=== PATIENT | female | born 1955 | race Caucasian/White ===

== ENCOUNTER 2016-09-28 16:18 | Inpatient (IN) | payer SELFPAY ==
[~2016-09-28] VITALS: Ht 195.6 cm; Wt 58.8 kg
[2016-09-28] MEDS ORDERED: SODIUM CHLORIDE 0.9% 1,000 ML IVB ONE (17:36)
[2016-09-28 18:29] LABS: Partial Thromboplastin Time 32.6 sec (22.64-33.71)
[2016-09-28 18:31] LABS: Calcium 7.3 mg/dL (8.5-10.1); Magnesium 2.1 mg/dL (1.6-2.6); Potassium 3.4 mmol/L (3.5-5.1)
[2016-09-28] MEDS ORDERED: ETOMIDATE (2MG/ML) 20ML VIAL IV ONE ×2 (18:34→18:45)
[2016-09-28] MEDS ORDERED: SUCCINYLCHOLINE CHLORIDE 20 MG/ML 10ML VIAL IV ONE ×2 (18:34→18:45)
[2016-09-28 18:39] LABS: INR 1.55 (0.9-1.15)
[2016-09-28 18:42] LABS: Basophils # (auto) 0 uL; Basophils % (auto) 0.5 % (0.0-2.0); Eosinophils # (auto) 0 uL; Eosinophils % (auto) 0.5 % (0.0-7.0); Hematocrit 44.5 % (36.0-46.0); Hemoglobin 14.4 g/dL (12.2-16.2); Lymphocytes # (auto) 0.6 uL; Mean Corpuscular Hemoglobin 28.6 pg (28.0-32.0); Mean Corpuscular Hgb Conc. 32.4 g/dL (32.0-36.0); Mean Corpuscular Volume 88.2 fL (80.0-100.0); Mean Platelet Volume 8.9 fL (7.4-10.4); Monocytes # (auto) 0.4 uL; Monocytes % (auto) 5.7 % (0.0-12.0); Neutrophils # (auto) 5.4 uL; Neutrophils % (auto) 84.3 % (37.0-80.0); Platelet Count (auto) 160 10^3/uL (140-450); Red Cell Distribution Width 14.4 % (11.6-16.0); White Blood Cell 6.4 10^3/uL (4.4-10.8)
[2016-09-28 18:45] VITALS: BP 109/67
[2016-09-28 18:47] LABS: Bilirubin, Total 2.4 mg/dL (0.2-1.0); Total Protein 5.8 g/dL (6.4-8.2)
[2016-09-28] MEDS ORDERED: MIDAZOLAM DRIP 100 mg/100mL NS 100 ML IV SCH (19:00)
[2016-09-28 19:29] LABS: Acetaminophen 10.4 ug/mL (10-30)
[2016-09-28 19:30] LABS: Urine Color Yellow (Yellow); Urine Glucose Normal (Normal); Urine Ketone Negative (Negative); Urine Mucus FEW (None Seen); Urine Nitrite Negative (Negative); Urine RBC 1 /hpf (0 - 4); Urine Squamous Epithelial Cell FEW /hpf (<5); Urine pH 5.5 (5.0-8.0)
[2016-09-28 19:35] LABS: Urine Bilirubin Negative (Negative); Urine Blood 2+ /uL (Negative)
[2016-09-28 19:58] LABS: Salicylate < 0.2 mg/dL (2.8-20.0)
[2016-09-28 20:05] VITALS: BP 127/78
[2016-09-28] MEDS ORDERED: SODIUM CHLORIDE 0.9% 1,000 ML IV ONE (21:45)
[2016-09-28] MEDS ORDERED: PANTOPRAZOLE SODIUM 40 MG/10 ML VIAL IV ONE (21:45)
[2016-09-28] MEDS ORDERED: NITROGLYCERIN 0.4 MG SL TAB SL PRN (22:00)
[2016-09-28] MEDS ORDERED: LACTULOSE 20Gm/30ML SOLN PO PRN (22:00)
[2016-09-28] MEDS ORDERED: MORPHINE SULF INJ 2 MG/ML SYRINGE 1ML IV PRN (22:00)
[2016-09-28 22:10] VITALS: BP 103/68
[2016-09-28] MEDS ORDERED: SODIUM BICARBONATE 8.4 % INJ 50ML VIAL IV ONE (22:30)
[2016-09-28] MEDS ORDERED: NALOXONE HCL 1MG/ML 2ML SYRINGE IV ONE (22:30)
[2016-09-28] MEDS ORDERED: ENOXAPARIN SOD 40 MG/0.4 ML SYRINGE SC ONE (22:45)
[2016-09-28] MEDS: PIPERACILLIN-TAZOB 3.375GM 100 ML IV SCH (22:58)
[2016-09-29] VITALS (9 sets, daily range): BP systolic 105–128; BP diastolic 52–78
[2016-09-29] MEDS: ACETAMINOPHEN 650 MG RECT SUPP PR PRN ×2 (02:15→14:21)
[2016-09-29 03:55] LABS: Basophils # (auto) 0 uL; Basophils % (auto) 0.1 % (0.0-2.0); Eosinophils # (auto) 0 uL; Eosinophils % (auto) 0.2 % (0.0-7.0); Hematocrit 46.6 % (36.0-46.0); Hemoglobin 15.1 g/dL (12.2-16.2); Lymphocytes # (auto) 0.5 uL; Lymphocytes % (auto) 8.9 % (10.0-50.0); Mean Corpuscular Hemoglobin 28.6 pg (28.0-32.0); Mean Corpuscular Hgb Conc. 32.4 g/dL (32.0-36.0); Mean Corpuscular Volume 88.3 fL (80.0-100.0); Mean Platelet Volume 8.6 fL (7.4-10.4); Monocytes # (auto) 0.3 uL; Monocytes % (auto) 5.6 % (0.0-12.0); Neutrophils # (auto) 4.4 uL; Neutrophils % (auto) 85.2 % (37.0-80.0); Platelet Count (auto) 169 10^3/uL (140-450); Red Cell Distribution Width 14.6 % (11.6-16.0); White Blood Cell 5.2 10^3/uL (4.4-10.8)
[2016-09-29 04:11] LABS: Albumin 2.6 g/dL (3.4-5.0); BUN/Creatinine Ratio 18.5; Calcium 7.2 mg/dL (8.5-10.1); Magnesium 1.8 mg/dL (1.6-2.6); Potassium 4.1 mmol/L (3.5-5.1)
[2016-09-29 04:25] LABS: Bilirubin, Total 2.7 mg/dL (0.2-1.0)
[2016-09-29] MEDS: PIPERACILLIN-TAZOB 3.375GM 100 ML IV SCH ×4 (04:43→23:18)
[2016-09-29] MEDS ORDERED: SODIUM CHLORIDE 0.9% 1,000 ML IV ONE (06:30)
[2016-09-29] MEDS: ENOXAPARIN SOD 40 MG/0.4 ML SYRINGE SC SCH (10:26)
[2016-09-29] MEDS: PANTOPRAZOLE SODIUM 40 MG/10 ML VIAL IV SCH (10:26)
[2016-09-29] MEDS: D5W/SOD CHL 0.45%/KCL 20MEQ 1,000 ML IV SCH (17:30)
[2016-09-29] MEDS ORDERED: PROPOFOL 100 ML IV ONE ×2 (19:47→19:49)
[2016-09-29] MEDS: PROPOFOL 100 ML IV SCH (19:58)
[2016-09-29] MEDS: NOREPINEPHRINE BITARTRATE 250 ML IV SCH (20:00)
[2016-09-30] VITALS (12 sets, daily range): BP systolic 101–148; BP diastolic 57–91
[2016-09-30] MEDS ORDERED: MIDAZOLAM DRIP 100 mg/100mL NS 100 ML IV ONE (01:15)
[2016-09-30] MEDS: MIDAZOLAM DRIP 100 mg/100mL NS 100 ML IV SCH (01:40)
[2016-09-30] MEDS: D5W/SOD CHL 0.45%/KCL 20MEQ 1,000 ML IV SCH ×3 (02:00→18:19)
[2016-09-30] MEDS: PIPERACILLIN-TAZOB 3.375GM 100 ML IV SCH ×4 (05:02→23:16)
[2016-09-30 06:33] LABS: Basophils # (auto) 0 uL; Basophils % (auto) 0.1 % (0.0-2.0); Eosinophils # (auto) 0 uL; Eosinophils % (auto) 0.2 % (0.0-7.0); Hematocrit 40.4 % (36.0-46.0); Hemoglobin 12.9 g/dL (12.2-16.2); Lymphocytes # (auto) 0.9 uL; Lymphocytes % (auto) 7.1 % (10.0-50.0); Mean Corpuscular Hemoglobin 28.4 pg (28.0-32.0); Mean Corpuscular Hgb Conc. 31.9 g/dL (32.0-36.0); Mean Corpuscular Volume 88.8 fL (80.0-100.0); Mean Platelet Volume 9.3 fL (7.4-10.4); Monocytes # (auto) 0.5 uL; Monocytes % (auto) 4.4 % (0.0-12.0); Neutrophils # (auto) 10.7 uL; Neutrophils % (auto) 88.2 % (37.0-80.0); Platelet Count (auto) 160 10^3/uL (140-450); Red Cell Distribution Width 14.2 % (11.6-16.0); White Blood Cell 12.1 10^3/uL (4.4-10.8)
[2016-09-30 06:58] LABS: Albumin 2.3 g/dL (3.4-5.0); BUN/Creatinine Ratio 16.1; Calcium 7.3 mg/dL (8.5-10.1); Potassium 3.7 mmol/L (3.5-5.1)
[2016-09-30 07:05] LABS: Bilirubin, Total 1.5 mg/dL (0.2-1.0); Total Protein 4.9 g/dL (6.4-8.2)
[2016-09-30] MEDS: ENOXAPARIN SOD 40 MG/0.4 ML SYRINGE SC SCH (09:35)
[2016-09-30] MEDS: PANTOPRAZOLE SODIUM 40 MG/10 ML VIAL IV SCH (09:35)
[2016-09-30] MEDS: ACETAMINOPHEN 650 MG RECT SUPP PR PRN (22:55)
[2016-10-01] VITALS (12 sets, daily range): BP systolic 109–142; BP diastolic 62–82
[2016-10-01] MEDS: MIDAZOLAM DRIP 100 mg/100mL NS 100 ML IV SCH (01:38)
[2016-10-01] MEDS: D5W/SOD CHL 0.45%/KCL 20MEQ 1,000 ML IV SCH ×3 (02:29→17:27)
[2016-10-01] MEDS: PIPERACILLIN-TAZOB 3.375GM 100 ML IV SCH ×4 (05:25→22:30)
[2016-10-01 06:33] LABS: Basophils # (auto) 0 uL; Basophils % (auto) 0.2 % (0.0-2.0); Eosinophils # (auto) 0.1 uL; Eosinophils % (auto) 0.9 % (0.0-7.0); Hematocrit 38.5 % (36.0-46.0); Hemoglobin 12.3 g/dL (12.2-16.2); Lymphocytes % (auto) 11.3 % (10.0-50.0); Mean Corpuscular Hemoglobin 28.8 pg (28.0-32.0); Mean Corpuscular Hgb Conc. 31.9 g/dL (32.0-36.0); Mean Corpuscular Volume 90.1 fL (80.0-100.0); Mean Platelet Volume 9.3 fL (7.4-10.4); Monocytes # (auto) 0.5 uL; Monocytes % (auto) 5.6 % (0.0-12.0); Neutrophils # (auto) 7.1 uL; Platelet Count (auto) 133 10^3/uL (140-450); Red Cell Distribution Width 15.1 % (11.6-16.0); White Blood Cell 8.6 10^3/uL (4.4-10.8)
[2016-10-01 06:49] LABS: Albumin 2.2 g/dL (3.4-5.0); BUN/Creatinine Ratio 12.8; Bilirubin, Total 1.4 mg/dL (0.2-1.0); Calcium 7.7 mg/dL (8.5-10.1); Potassium 3.7 mmol/L (3.5-5.1)
[2016-10-01] MEDS: NOREPINEPHRINE BITARTRATE 250 ML IV SCH ×2 (08:35→20:00)
[2016-10-01] MEDS: ENOXAPARIN SOD 40 MG/0.4 ML SYRINGE SC SCH (10:11)
[2016-10-01] MEDS: PANTOPRAZOLE SODIUM 40 MG/10 ML VIAL IV SCH (10:11)
[2016-10-01] MEDS: PROPOFOL 100 ML IV SCH ×3 (10:52→23:30)
[2016-10-02] VITALS (78 sets, daily range): BP systolic 102–160; BP diastolic 60–91
[2016-10-02] MEDS: MIDAZOLAM DRIP 100 mg/100mL NS 100 ML IV SCH (01:38)
[2016-10-02] MEDS: D5W/SOD CHL 0.45%/KCL 20MEQ 1,000 ML IV SCH ×3 (03:50→21:33)
[2016-10-02] MEDS: PIPERACILLIN-TAZOB 3.375GM 100 ML IV SCH ×4 (05:45→22:34)
[2016-10-02] MEDS: PROPOFOL 100 ML IV SCH (09:24)
[2016-10-02] MEDS ORDERED: Isosource 1.5 Cal 1 Liter GT SCH (10:00)
[2016-10-02] MEDS: ENOXAPARIN SOD 40 MG/0.4 ML SYRINGE SC SCH (10:21)
[2016-10-02] MEDS: PANTOPRAZOLE SODIUM 40 MG/10 ML VIAL IV SCH (10:22)
[2016-10-02] MEDS: NOREPINEPHRINE BITARTRATE 250 ML IV SCH (20:00)
[2016-10-03] VITALS (22 sets, daily range): BP systolic 108–139; BP diastolic 53–74
[2016-10-03 04:34] LABS: Albumin 2.1 g/dL (3.4-5.0); BUN/Creatinine Ratio 8.6; Calcium 7.6 mg/dL (8.5-10.1); Potassium 3.8 mmol/L (3.5-5.1)
[2016-10-03 04:36] LABS: Bilirubin, Total 0.9 mg/dL (0.2-1.0); Total Protein 5.2 g/dL (6.4-8.2)
[2016-10-03] MEDS: D5W/SOD CHL 0.45%/KCL 20MEQ 1,000 ML IV SCH ×3 (04:50→21:30)
[2016-10-03] MEDS: PIPERACILLIN-TAZOB 3.375GM 100 ML IV SCH ×4 (04:54→22:15)
[2016-10-03] MEDS: ENOXAPARIN SOD 40 MG/0.4 ML SYRINGE SC SCH (09:47)
[2016-10-03] MEDS: PANTOPRAZOLE SODIUM 40 MG/10 ML VIAL IV SCH (09:47)
[2016-10-03] MEDS: NOREPINEPHRINE BITARTRATE 250 ML IV SCH (20:00)
[2016-10-04] MEDS: PIPERACILLIN-TAZOB 3.375GM 100 ML IV SCH ×4 (04:19→22:09)
[2016-10-04] MEDS ORDERED: ACETAMINOPHEN 325 MG TAB PO PRN (05:45)
[2016-10-04] MEDS: D5W/SOD CHL 0.45%/KCL 20MEQ 1,000 ML IV SCH ×3 (05:55→22:09)
[2016-10-04 06:09] VITALS: BP 122/65
[2016-10-04] MEDS: PANTOPRAZOLE SODIUM 40 MG/10 ML VIAL IV SCH (10:04)
[2016-10-04] MEDS: ENOXAPARIN SOD 40 MG/0.4 ML SYRINGE SC SCH (10:04)
[2016-10-04 13:00] VITALS: BP 120/70
[2016-10-04 17:00] VITALS: BP 113/69
[2016-10-04] MEDS: Boost Breeze 8 Ounces PO SCH (18:00)
[2016-10-04] MEDS: PRO-STAT 64 30ML PO SCH (18:00)
[2016-10-04 22:04] VITALS: BP 139/95
[2016-10-05] MEDS: PIPERACILLIN-TAZOB 3.375GM 100 ML IV SCH ×2 (04:14→11:07)
[2016-10-05 05:41] VITALS: BP 118/72
[2016-10-05] MEDS: PRO-STAT 64 30ML PO SCH ×2 (08:00→12:00)
[2016-10-05] MEDS: Boost Breeze 8 Ounces PO SCH (08:00)
[2016-10-05] MEDS: D5W/SOD CHL 0.45%/KCL 20MEQ 1,000 ML IV SCH (08:32)
[2016-10-05 08:54] VITALS: BP 116/67
[2016-10-05] MEDS: ENOXAPARIN SOD 40 MG/0.4 ML SYRINGE SC SCH (09:35)
[2016-10-05] MEDS: PANTOPRAZOLE SODIUM 40 MG/10 ML VIAL IV SCH (09:36)
[2016-10-05 13:00] VITALS: BP 114/53
[2016-10-05 16:36] VITALS: BP 114/55
[2016-10-05 17:00] VITALS: BP 129/75
[2016-10-05] MEDS ORDERED: LORazepam 0.5 MG TAB ONE (21:22)
[2016-10-05] MEDS ORDERED: LORazepam 0.5 MG TAB PO ONE (21:30)
== END 2016-10-05 18:02 | disposition psychiatric hospital, planned readmission (93) | DRG 917 ==
LOC: EDUNIT# 16:18 → ER 16:37 → EDBD 16:38 → TELE 16:38 → ICU WEST 10-02 04:22 → TELE-WESTW 10-03 06:39 → WEST WING 10-04 01:29
PROVIDERS: ADMIT Family Medicine; ATTEND Internal Medicine Pulmonary Disease
DX: T50.902A Poisoning by unspecified drugs, medicaments and biological substances, intentional self-harm, initial encounter (principal); G92 Toxic encephalopathy; J96.90 Respiratory failure, unspecified, unspecified whether with hypoxia or hypercapnia; J69.0 Pneumonitis due to inhalation of food and vomit; M62.82 Rhabdomyolysis; E87.2 Acidosis; K83.8 Other specified diseases of biliary tract; K71.6 Toxic liver disease with hepatitis, not elsewhere classified; E87.6 Hypokalemia; Y92.89 Other specified places as the place of occurrence of the external cause
CPT/HCPCS: 36415; 36600; 51702; 70450; 71010; 76705; 80053; 80320; 80329; 81001; 82140; 82550; 82805; 82962; 83605; 83735; 85025; 85610; 85730; 87081; 93005; 94002; 94003; 95819; 96361; 96374; 96375; 97001; C9113; G0434; J0330; J2543; J2704; J3490

== ENCOUNTER 2016-10-05 21:39 | Emergency (ER) | payer SELFPAY ==
[~2016-10-05] VITALS: Ht 175.3 cm; Wt 56.7 kg
[2016-10-05] MEDS ORDERED: traZODone HCL 50 MG TAB PO ONE (23:00)
[2016-10-06 16:07] VITALS: BP 138/79
== END 2016-10-06 17:05 | disposition short-term general hospital (02) ==
LOC: ER 21:47
DX: F32.9 Major depressive disorder, single episode, unspecified (principal); R45.851 Suicidal ideations; F41.9 Anxiety disorder, unspecified; F12.10 Cannabis abuse, uncomplicated; R51 Headache
CPT/HCPCS: 70450; 73090

== ENCOUNTER 2016-11-17 14:56 | Emergency (ER) | payer SELFPAY ==
[~2016-11-17] VITALS: Ht 175.3 cm; Wt 50.8 kg
[2016-11-17 15:10] VITALS: BP 125/92
[2016-11-17 16:26] LABS: Basophils # (auto) 0 uL; Basophils % (auto) 0.4 % (0.0-2.0); Eosinophils # (auto) 0 uL; Eosinophils % (auto) 0.2 % (0.0-7.0); Hematocrit 50.4 % (36.0-46.0); Lymphocytes # (auto) 1.3 uL; Lymphocytes % (auto) 14.8 % (10.0-50.0); Mean Corpuscular Hemoglobin 28.3 pg (28.0-32.0); Mean Corpuscular Hgb Conc. 31.7 g/dL (32.0-36.0); Mean Corpuscular Volume 89.3 fL (80.0-100.0); Mean Platelet Volume 8.7 fL (7.4-10.4); Monocytes # (auto) 0.6 uL; Monocytes % (auto) 6.6 % (0.0-12.0); Neutrophils # (auto) 7.1 uL; Platelet Count (auto) 337 10^3/uL (140-450); Red Cell Distribution Width 15.1 % (11.6-16.0); White Blood Cell 9.1 10^3/uL (4.4-10.8)
[2016-11-17 16:44] LABS: Albumin 3.7 g/dL (3.4-5.0); Anion Gap 6 (5-15); Aspartate Aminotransferase 13 U/L (15-37); BUN/Creatinine Ratio 17.1; Blood Urea Nitrogen 12 mg/dL (7-18); Calcium 9.1 mg/dL (8.5-10.1); Carbon Dioxide 31 mmol/L (21-32); Chloride 101 mmol/L (98-107); GFR African American 109 mL/min; GFR Non-African American 90 mL/min; Glucose 101 mg/dL (74-106); Sodium 138 mmol/L (136-145)
[2016-11-17 16:51] LABS: Alkaline Phosphatase 78 U/L (45-117); Bilirubin, Total 0.8 mg/dL (0.2-1.0); Total Protein 7.6 g/dL (6.4-8.2)
== END 2016-11-17 17:48 | disposition left against medical advice (07) ==
LOC: ER 15:13
DX: R07.9 Chest pain, unspecified (principal); Z53.21 Procedure and treatment not carried out due to patient leaving prior to being seen by health care provider
CPT/HCPCS: 36415; 71020; 80053; 84484; 85025; 93005